=== PATIENT | female | born 1955 ===

== ENCOUNTER 2019-07-11 10:41 | Inpatient (IN) | payer OTHER ==
[2019-07-11] MEDS ORDERED: PNEUMONIA PROTOCOL UTILIZED 1 EACH MISC PO PRN (14:52)
--- NOTE | 2019-07-11 15:26 | P.HPIM ---
History of Present Illness Patient is a pleasant 64-year-old female was transferred from [facility] in [place] at the request of the physician there. Patient was being treated for for pneumonia for last 5 days patient received Rocephin and azithromycin for 4 days followed by levofloxacin as patient is not improving was requested to transfer the patient to be assessed by a winch runner. Patient also feels like she has significant clinical improvement since her hospitalization that. Patient had low-grade fever was Having cough with greenish sputum production. Was diagnosed with pneumonia was treated for with Rocephin and azithromycin followed by levofloxacin as mentioned above. Patient was also treated with systemic steroids and patient had leukocytosis which has worsened probably because of systemic steroids. Patient was using 2 L of oxygen they're here presently in 4 L but but I cut down to 2 L patient is saturating okay but do not believe patient would require 4 L here. Patient is a smoker but not wheezing on exam. Patient is presently complaining of clear sputum production. Patient does have tremor which as per the patient is chronic but can be related to the systemic steroids Review of Systems REVIEW OF SYSTEMS: CONSTITUTIONAL: No fever, no malaise, no fatigue. HEENT: No recent visual problems or hearing problems. Denied any sore throat. CARDIOVASCULAR: No chest pain, orthopnea, PND, no palpitations, no syncope. PULMONARY: No shortness of breath, no cough, no hemoptysis. GASTROINTESTINAL: No diarrhea, no nausea, no vomiting, no abdominal pain. NEUROLOGICAL: No headaches, no weakness, no numbness. HEMATOLOGICAL: Denies any bleeding or petechiae. GENITOURINARY: Denies any burning micturition, frequency, or urgency. MUSCULOSKELETAL/RHEUMATOLOGICAL: Denies any joint pain, swelling, or any muscle pain. ENDOCRINE: Denies any polyuria or polydipsia. The rest of the 14-point review of systems is negative. 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 History of Any Multi-Drug Resistant Organisms: None Reported Additional Past Surgical History / Comment(s): D&C Past Anesthesia/Blood Transfusion Reactions: No Reported Reaction Smoking Status: Current every day smoker - Past Family History Father Family Medical History: Cancer, Coronary Artery Disease (CAD) Additional Family Medical History / Comment(s): Father had throat/lung cancer which he from at the age of 67yrs. Mother Family Medical History: Liver Disease Additional Family Medical History / Comment(s): Mother was an alcoholic. She had cirrhosis. She of meningitis at a young age. Physical Exam Vitals: Vital Signs Temp Pulse Resp BP Pulse Ox 07/11/19 13:20 98.0 F 91 18 178/93 95 Intake and Output 07/11/19 07/11/19 07/11/19 06:59 14:59 22:59 Other: Voiding Method Toilet Weight 58.74 kg PHYSICAL EXAMINATION: GENERAL: The patient is alert and oriented x3, not in any acute distress. Well developed, well nourished. Patient does have tremors HEENT: Pupils are round and equally reacting to light. EOMI. No scleral icterus. No conjunctival pallor. Normocephalic, atraumatic. No pharyngeal erythema. No thyromegaly. CARDIOVASCULAR: S1 and S2 present. No murmurs, rubs, or gallops. PULMONARY: Chest is clear to auscultation, no wheezing or crackles. ABDOMEN: Soft, nontender, nondistended, normoactive bowel sounds. No palpable organomegaly. MUSCULOSKELETAL: No joint swelling or deformity. EXTREMITIES: No cyanosis, clubbing, or pedal edema. NEUROLOGICAL: Gross neurological examination did not reveal any focal deficits. SKIN: No rashes. Thrombosis Risk Factor Assmnt - Choose All That Apply Any of the Below Risk Factors Present?: Yes Each Factor Represents 1 point: Serious lung disease incl. pneumonia (< 1month) Other Risk Factors: Yes Each Risk Factor Represents 2 Points: Age 61-74 years Other congenital or acquired thrombophilia - If yes, enter type in comment: No Thrombosis Risk Factor Assessment Total Risk Factor Score: 3 Thrombosis Risk Factor Assessment Level: Moderate Risk Assessment and Plan Plan: -Pneumonia: Community-acquired patient will be started on Zosyn and levofloxacin as patient didn't develop Rocephin and azithromycin. Pulmonology was Consulted. We'll hold off on systemic steroids patient will be continued on albuterol and ipratropium. Sputum cultures will be obtained -Leukocytosis which is worsening probably secondary to systemic steroids rather than nonresponding pneumonia. We'll repeat a chest x-ray. -Nicotine abuse: Counseling was provided DVT prophylaxis with enoxaparin and GI prophylaxis. Pepcid
[2019-07-11 15:45] LABS: Basophils # (A) 0.4 k/uL (0-0.2); Basophils % (A) 2 %; Eosinophils % (A) 0 %; HCT 39.2 % (34.0-46.0); HGB 11.9 gm/dL (11.4-16.0); Lymphocytes # (A) 0.2 k/uL (1.0-4.8); Lymphocytes % (A) 1 %; MCH 28.2 pg (25.0-35.0); MCHC 30.3 g/dL (31.0-37.0); Mean Platelet Volume 6.4; Monocytes # (A) 0.4 k/uL (0-1.0); Monocytes % (A) 2 %; Neutrophils # (A) 15.8 k/uL (1.3-7.7); Neutrophils % (A) 94 %; Platelet Count 427 k/uL (150-450); RBC 4.21 m/uL (3.80-5.40); RDW 13.4 % (11.5-15.5); WBC 16.8 k/uL (3.8-10.6)
[2019-07-11] MEDS: SODIUM CHLORIDE 0.9% 1,000 ML IV SCH (15:58)
[2019-07-11] MEDS: PIPERACILLIN-TAZOBACTAM 3.375 GM in SODIUM CHLORIDE 0.9% 100 ML IVPB SCH (15:59)
[2019-07-11] MEDS: FAMOTIDINE 20 MG TAB PO SCH (19:45)
[2019-07-12] MEDS: PIPERACILLIN-TAZOBACTAM 3.375 GM in SODIUM CHLORIDE 0.9% 100 ML IVPB SCH ×2 (00:01→08:15)
[2019-07-12] MEDS: SODIUM CHLORIDE 0.9% 1,000 ML IV SCH ×2 (00:07→08:19)
[2019-07-12] MEDS: FAMOTIDINE 20 MG TAB PO SCH ×2 (08:17→08:18)
[2019-07-12] MEDS: ENOXAPARIN 40 MG/0.4 ML SYRINGE SQ SCH (08:17)
[2019-07-12] MEDS ORDERED: predniSONE 20 MG TAB PO SCH (09:00)
[2019-07-12] MEDS ORDERED: FUROSEMIDE 10 MG/ML 4 ML VIAL IV STA (10:27)
[2019-07-12] MEDS: IPRATROPIUM-ALBUTEROL 3 ML NEB INHALATION PRN ×3 (10:35→18:54)
[2019-07-12 11:49] LABS: Basophils # (A) 0.2 k/uL (0-0.2); Basophils % (A) 2 %; Eosinophils # (A) 0.1 k/uL (0-0.7); Eosinophils % (A) 0 %; HCT 44.4 % (34.0-46.0); HGB 14.1 gm/dL (11.4-16.0); Lymphocytes # (A) 1.4 k/uL (1.0-4.8); Lymphocytes % (A) 9 %; MCH 29.5 pg (25.0-35.0); MCHC 31.8 g/dL (31.0-37.0); MCV 92.8 fL (80.0-100.0); Mean Platelet Volume 6.3; Monocytes # (A) 0.7 k/uL (0-1.0); Monocytes % (A) 5 %; Neutrophils # (A) 13.2 k/uL (1.3-7.7); Neutrophils % (A) 84 %; Platelet Count 456 k/uL (150-450); RBC 4.78 m/uL (3.80-5.40); RDW 13.4 % (11.5-15.5); WBC 15.7 k/uL (3.8-10.6)
[2019-07-12 12:33] LABS: African American GFR (CKD) >90 (>60 ml/min/1.73 sqM); Anion Gap 9 mmol/L; Blood Urea Nitrogen 16 mg/dL (7-17); Calcium 9.5 mg/dL (8.4-10.2); Carbon Dioxide 33 mmol/L (22-30); Chloride 98 mmol/L (98-107); Glucose 84 mg/dL (74-99); Non-African American GFR(CKD) >90 (>60 ml/min/1.73 sqM); Sodium 140 mmol/L (137-145)
--- NOTE | 2019-07-12 13:10 | XR ---
EXAMINATION TYPE: XR chest 2V DATE OF EXAM: 07/12/2019 COMPARISON: NONE HISTORY: Shortness of breath TECHNIQUE: Frontal and lateral views of the chest are obtained. FINDINGS: Scattered senescent parenchymal changes noted. Hyperinflation compatible with COPD. Patchy density left lower lobe may reflect developing pneumonia. Correlate clinically. Heart size is stable. Mediastinal structures are stable and grossly unremarkable. No evidence for hilar prominence. Degenerative changes dorsal spine. IMPRESSION: 1. Patchy density left lower lobe may reflect developing pneumonia. Correlate clinically.
[2019-07-12] MEDS ORDERED: LEVOFLOXACIN 750 MG TAB PO SCH (16:00)
--- NOTE | 2019-07-12 16:31 | P.PN ---
Subjective Progress Note Date: 07/12/19 Principal diagnosis: Patient is a pleasant 64-year-old female was transferred from [facility] in [place] at the request of the physician there. Patient was being treated for for pneumonia for last 5 days patient received Rocephin and azithromycin for 4 days followed by levofloxacin as patient is not improving was requested to transfer the patient to be assessed by a electric motor repairer. Patient also feels like she has significant clinical improvement since her hospitalization that. Patient had low-grade fever was Having cough with greenish sputum production. Was diagnosed with pneumonia was treated for with Rocephin and azithromycin followed by levofloxacin as mentioned above. Patient was also treated with systemic steroids and patient had leukocytosis which has worsened probably because of systemic steroids. Patient was using 2 L of oxygen they're here presently in 4 L but but I cut down to 2 L patient is saturating okay but do not believe patient would require 4 L here. Patient is a smoker but not wheezing on exam. Patient is presently complaining of clear sputum production. Patient does have tremor which as per the patient is chronic but can be related to the systemic steroids 07/12/2019 Patient is sitting up in the bed in no acute distress with no acute overnight issues. Daughter is at the bedside. Patient is adamant about going home but is currently requiring oxygen she continues to desat into the 80s with oxygen on via nasal cannula with exertion. Patient and daughter state that she never goes to the doctor unless she is sick and does not have a primary care provider at this time. Pulmonary is consulted and Pending at this time. Will await report. Discussed with the patient at length about staying another night to monitor closely as she is not ready to go home if she is requiring oxygen in order to maintain oxygenation at least 90%. When talking with the patient, patient is very winded and takes multiple breaks in between words. Currently patient denies any chest pain, shortness of breath, or palpitations. Patient has been afebrile. Patient denies any nausea or vomiting and is tolerating diet. Chest x-ray today shows patchy density left lower lobe that may reflect pneumonia. Patient is being started on steroids as well as bronchodilators. Will continue to monitor closely. Objective - Vital Signs Vital signs: Vital Signs Temp 98.1 F 07/12/19 05:00 Pulse 76 07/12/19 10:48 Resp 16 07/12/19 05:00 BP 146/90 07/12/19 05:00 Pulse Ox 88 L 07/12/19 11:58 Intake & Output 07/11/19 07/12/19 07/12/19 18:59 06:59 18:59 Intake Total 540 Balance 540 Weight 58.74 kg Intake: Oral 540 Other: Voiding Method Toilet Toilet # Voids 2 3 - Exam GENERAL: The patient is alert and oriented x3, not in any acute distress. Well developed, well nourished. Patient does have tremors HEENT: Pupils are round and equally reacting to light. EOMI. No scleral icterus. No conjunctival pallor. Normocephalic, atraumatic. No pharyngeal erythema. No thyromegaly. CARDIOVASCULAR: S1 and S2 present. No murmurs, rubs, or gallops. PULMONARY: Diminished breath sounds at the bases with diminished air entry otherwise Chest is clear to auscultation, no wheezing or crackles. ABDOMEN: Soft, nontender, nondistended, normoactive bowel sounds. No palpable organomegaly. MUSCULOSKELETAL: No joint swelling or deformity. EXTREMITIES: No cyanosis, clubbing, or pedal edema. NEUROLOGICAL: Gross neurological examination did not reveal any focal deficits. SKIN: No rashes. - Labs CBC & Chem 7: 07/12/19 10:55 07/12/19 10:55 Labs: Abnormal Lab Results - Last 24 Hours (Table) 07/11/19 07/12/19 07/12/19 Range/Units 15:22 10:55 10:55 WBC 16.8 H 15.7 H (3.8-10.6) k/uL MCHC 30.3 L (31.0-37.0) g/dL Plt Count 456 H (150-450) k/uL Neutrophils # 15.8 H 13.2 H (1.3-7.7) k/uL Lymphocytes # 0.2 L (1.0-4.8) k/uL Basophils # 0.4 H (0-0.2) k/uL Carbon Dioxide 33 H (22-30) mmol/L Assessment and Plan Assessment: -Pneumonia: Community-acquired patient will be started on Zosyn and levofloxacin. Pulmonology was Consulted. Patient is being started on IV Solu- Medrol and patient will be continued on albuterol and ipratropium. Sputum cultures will be obtained -Leukocytosis which is slightly improving probably secondary to systemic steroids rather than nonresponding pneumonia. We'll repeat a chest x-ray. Repeat chest x-ray shows patchy density left lower lobe that may reflect pneumonia. Current WBC is 15.7 which is trending down from 16.8 yesterday. -Nicotine abuse: Counseling was provided -DVT prophylaxis with enoxaparin -GI prophylaxis with Pepcid Recommendations and discussion: Recommend to continue current medications, management, and symptomatic treatment. Pulmonary is consulted and pending at this time. Patient will be started on IV steroids and will continue on bronchodilators at this time. Will continue to monitor closely. Patient is currently requiring oxygen via nasal cannula as a home O2 eval was done and patient continued to desat into the low 80s with exertion. Patient states that she was never told that she had any type of lung disease or COPD but states that she is a chronic smoker and never goes to the doctor unless she is sick. Patient does not currently have a primary c are provider. Resources will be provided upon discharge. Further recommendations to follow. Guarded prognosis.
[2019-07-12] MEDS: methylPREDNISolone SOD SUCCI 125 MG/2 ML VIAL IV SCH ×2 (16:34→23:38)
[2019-07-12] MEDS: FORMOTEROL FUMARATE 20 MCG/2 ML NEBU INHALATION SCH (18:54)
[2019-07-12] MEDS: BUDESONIDE 1 MG/2 ML NEBU INHALATION SCH (18:54)
--- NOTE | 2019-07-12 19:52 | CONS ---
CONSULTATION PULMONARY/CRITICAL CARE CONSULTATION: DATE OF SERVICE: 07/12/2019 This is a 64-year-old female who was admitted to [facility] in [place]. She was admitted initially with a diagnosis of COPD exacerbation and pneumonia. She was there for about 4 or 5 days, treated with typical medications, including Rocephin and Zithromax. She apparently improved there clinically, but apparently this doctor was still uncomfortable with the patient and transferred her down here to be evaluated. She was a direct admission to the hospital. She did have a chest x-ray today which showed a possible infiltrate in the right lower lobe. The patient is a heavy smoker. She has been smoking for more than 40 years. The patient smokes about a pack or more a day. She likely has underlying COPD. Her chest x-ray is consistent with COPD. Anyway, her complaints included shortness of breath, chest tightness, wheezing, cough, chest congestion, shortness of breath and phlegm production. She apparently did not have any chest pain or chest discomfort. There was no history of any fever, according to her. No nausea, vomiting or diarrhea. The patient is currently on oxygen therapy. Off oxygen, she desaturates. Initially she was refusing the oxygen, according to the nurse. PAST MEDICAL HISTORY: Her past medical history is positive for urinary frequency as well as probable COPD. She does not see a family doctor and does not have a family doctor. She denies really having any major medical problems. SURGICAL HISTORY: Surgical history includes a D&C. No other surgeries are noted. SOCIAL HISTORY: Negative for tobacco or illicit drug use. She has been smoking every day for a number of years now, more than 40 at least. FAMILY HISTORY: Family history is positive for father with cancer and CAD. Father apparently had throat cancer and lung cancer. Mother had a history of liver disease. She was an alcoholic and had cirrhosis. REVIEW OF SYSTEMS: CONSTITUTIONAL: Negative. NEUROLOGIC: Negative. HEENT: Negative. CARDIOVASCULAR: Negative. PULMONARY: Shortness of breath, chest tightness, wheezing, cough, chest congestion and phlegm production. GI: Negative. : Negative. RHEUMATOLOGIC: Negative. IMMUNOLOGIC: Negative. ENDOCRINOLOGIC: Negative. DERMATOLOGIC: Negative. PHYSICAL EXAMINATION: VITAL SIGNS: Current vital signs are reviewed. Temperature is 98.1, heart rate 76, respiratory rate 16, blood pressure 146/90, mean 108, two-liter saturation 93%. One- liter saturation 91%. On room air she is 85%. GENERAL APPEARANCE: Appears in no acute distress. No audible wheezing. There is mild conversational dyspnea. No use of accessory muscles. HEENT: HEENT examination is grossly unremarkable. Mucous membranes are moist. No oral lesions. NECK: Supple. Full range of motion. No adenopathy. Neck veins are flat. CARDIOVASCULAR: Cardiovascular examination reveals regular rhythm and rate. S1, S2 normal. No S3, S4. No murmur. Heart rate 76. LUNGS: Lungs reveal severely diminished breath sounds throughout. The patient has prolongation on forced maneuver. She wheezes on forced maneuver. No crackles. Some diffuse rhonchi noted. ABDOMEN: Soft. Bowel sounds are heard. EXTREMITIES: Extremities are intact. No cyanosis, clubbing or edema. SKIN: Without rash. NEUROLOGIC: Neurologic examination is brief but nonfocal. IMAGING: Chest x-ray in my opinion shows changes of COPD. In addition, there may be bibasilar infiltrates. I was more impressed with the right-sided infiltrate. The radiologist was more concerned about the left lower lobe infiltrate. LAB DATA: Reviewed. White count 15.7, hemoglobin 14.1, hematocrit 44.4, platelet count 456,000. Sodium and potassium normal. Chloride is 98, CO2 33. Anion gap 9. BUN and creatinine were 16 and 0.7. The elevated bicarbonate or carbon dioxide concentration might be reflective of the patient's COPD, suggesting more severe disease. Microbiology is negative. Medications were adjusted accordingly. We added Pulmicort 1 mg along with Perforomist twice a day. We went back on IV Solu-Medrol 60 mg q.6. She is currently on Levaquin. In addition, we continue the DuoNeb. The Lasix was discontinued. ASSESSMENT: 1. Chronic obstructive pulmonary disease exacerbation complicated by purulent tracheobronchitis and probable bronchopneumonia in both lower lobes, possibly left greater than right. 2. History of ongoing tobacco use with nicotine addiction. 3. No additional medical history, according to the patient. PLAN: The patient's medications are adjusted accordingly. We will continue to follow. I did mention to her that she may have to be discharged home on oxygen therapy. Additional recommendations and suggestions are forthcoming. Prognosis is guarded. I would be happy to see her in clinic in followup to do pulmonary function testing. MMODL / IJN: [id number] /
[2019-07-13] MEDS: methylPREDNISolone SOD SUCCI 125 MG/2 ML VIAL IV SCH ×2 (05:37→12:14)
[2019-07-13] MEDS: BUDESONIDE 1 MG/2 ML NEBU INHALATION SCH (07:19)
[2019-07-13] MEDS: IPRATROPIUM-ALBUTEROL 3 ML NEB INHALATION PRN ×2 (07:19→10:46)
[2019-07-13] MEDS: FORMOTEROL FUMARATE 20 MCG/2 ML NEBU INHALATION SCH (07:19)
[2019-07-13] MEDS: ENOXAPARIN 40 MG/0.4 ML SYRINGE SQ SCH (09:25)
[2019-07-13] MEDS: FAMOTIDINE 20 MG TAB PO SCH (09:25)
[2019-07-13 09:48] VITALS: BP 156/80; RESP 19; TEMP 97.7
[2019-07-13 10:49] VITALS: PULSE 100
--- NOTE | 2019-07-13 12:59 | P.PN ---
Subjective Progress Note Date: 07/13/19 Principal diagnosis: Chronic obstructive pulmonary disease exacerbation complicated with purulent tracheobronchitis and probable bronchopneumonia On 07/13/2019 patient seen in follow-up on medical surgical floor. She is breathing much easier today, she is on 1 L of oxygen per nasal cannula her pulse ox 91%, afebrile, hemodynamically patient is stable, lung sounds reveal breath sounds, no wheezing, no rhonchi. No febrile episodes, no new labs today, no new chest x-rays. Increase activity as tolerated. Objective - Vital Signs Vital signs: Vital Signs Temp 97.7 F 07/13/19 09:41 Pulse 100 07/13/19 11:03 Resp 19 07/13/19 09:41 BP 156/80 07/13/19 09:41 Pulse Ox 91 L 07/13/19 09:41 Intake & Output 07/12/19 07/13/19 07/13/19 18:59 06:59 18:59 Other: Voiding Method Toilet Toilet Toilet # Voids 2 2 # Bowel Movements 0 - Exam GENERAL EXAM: Alert, pleasant, 64-year-old white female on 1 L of oxygen per nasal cannula with a pulse ox of 91% comfortable in no apparent distress. HEAD: Normocephalic/atraumatic. EYES: Normal reaction of pupils, equal size. Conjunctiva pink, sclera white. NOSE: Clear with pink turbinates. THROAT: No erythema or exudates. NECK: No masses, no JVD, no thyroid enlargement, no adenopathy. CHEST: No chest wall deformity. Symmetrical expansion. LUNGS: Equal air entry with no crackles, wheeze, rhonchi or dullness. CVS: Regular rate and rhythm, normal S1 and S2, no gallops, no murmurs, no rubs ABDOMEN: Soft, nontender. No hepatosplenomegaly, normal bowel sounds, no guarding or rigidity. EXTREMITIES: No clubbing, no edema, no cyanosis, 2+ pulses and upper and lower extremities. MUSCULOSKELETAL: Muscle strength and tone normal. SPINE: No scoliosis or deformity SKIN: No rashes CENTRAL NERVOUS SYSTEM: Alert and oriented -3. No focal deficits, tone is normal in all 4 extremities. PSYCHIATRIC: Alert and oriented -3. Appropriate affect. Intact judgment and insight. - Labs CBC & Chem 7: 07/12/19 10:55 07/12/19 10:55 Assessment and Plan Plan: Assessment: #1. Acute hypoxic respiratory failure related to acute exacerbation of COPD #2. Acute tracheobronchitis and probable bronchopneumonia in both lower lobes possibly left greater than right #3. His trip ongoing tobacco use with nicotine addiction Plan: Clinically patient is stable, increase activity as tolerated, she is requesting to go home today, from pulmonary perspective patient could be considered for discharge home today or tomorrow, She will likely need oxygen after discharge until she fully recovers, we would like to see her in the office in follow-up in 1-2 weeks, she can complete outpatient course of oral antibiotics, prednisone taper, and breathing treatments, okay cessation was encouraged I performed a history & physical examination of the patient and discussed their management with my nurse practitioner, Sammie Moses. I reviewed the nurse practitioner's note and agree with the documented findings and plan of care. Lung sounds are positive for diminished. The findings and the impression was discussed with the patient. I attest to the documentation by the nurse practitioner. Time with Patient: Less than 30
--- NOTE | 2019-07-13 18:40 | P.DS ---
Providers Date of admission: 07/11/19 13:15 Expected date of discharge: 07/13/19 Attending physician: Pamela Jeong Consults: 07/11/19 14:52 Consult Physician Routine Consulting Provider: Noam Brown Consult Reason/Comments: Pneumonia Do you want consulting provider notified?: Yes Primary care physician: Stated None Hospital Course: Final diagnosis -Pneumonia: Community-acquired -Acute COPD exacerbation with possible tracheobronchitis -Leukocytosis -Nicotine abuse: Counseling was provided -DVT prophylaxis -GI prophylaxis Discharge disposition Patient is being discharged in a stable condition with guarded prognosis to home and will follow up with primary care provider upon discharge. Patient does not currently have a pcp and resources were provided. Patient will also follow up with pulmonary in the office in1-2 weeks. Total time taken is 35 minutes. History of present illness Patient is a pleasant 64-year-old female was transferred from [facility] in [place] at the request of the physician there. Patient was being treated for for pneumonia for last 5 days patient received Rocephin and azithromycin for 4 days followed by levofloxacin as patient is not improving was requested to transfer the patient to be assessed by a director of product development. Patient also feels like she has significant clinical improvement since her hospitalization that. Patient had low-grade fever was Having cough with greenish sputum production. Was diagnosed with pneumonia was treated for with Rocephin and azithromycin followed by levofloxacin as mentioned above. Patient was also treated with systemic steroids and patient had leukocytosis which has worsened probably because of systemic steroids. Patient was using 2 L of oxygen they're here presently in 4 L but but I cut down to 2 L patient is saturating okay but do not believe patient would require 4 L here. Patient is a smoker but not wheezing on exam. Patient is presently complaining of clear sputum production. Patient does have tremor which as per the patient is chronic but can be related to the systemic steroids 07/12/2019 Patient is sitting up in the bed in no acute distress with no acute overnight issues. Daughter is at the bedside. Patient is adamant about going home but is currently requiring oxygen she continues to desat into the 80s with oxygen on via nasal cannula with exertion. Patient and daughter state that she never goes to the doctor unless she is sick and does not have a primary care provider at this time. Pulmonary is consulted and Pending at this time. Will await report. Discussed with the patient at length about staying another night to monitor closely as she is not ready to go home if she is requiring oxygen in order to maintain oxygenation at least 90%. When talking with the patient, patient is very winded and takes multiple breaks in between words. Currently patient denies any chest pain, shortness of breath, or palpitations. Patient has been afebrile. Patient denies any nausea or vomiting and is tolerating diet. Chest x-ray today shows patchy density left lower lobe that may reflect pneumonia. Patient is being started on steroids as well as bronchodilators. Will continue to monitor closely. Patient will continue with 02 via NC at 1-2 L until follow up with pulmonary along with antibiotics in the form of Levaquin, prednisone taper, and breathing inhalation treatments. A nebulizer script was provided as well as home 02. Physical Exam GENERAL: The patient is alert and oriented x3, not in any acute distress. Well developed, well nourished. Patient does have tremors. Vital signs are stable. Patient is currently on 1 L 02 via NC and 02 sat is 91%. HEENT: Pupils are round and equally reacting to light. EOMI. No scleral icterus. No conjunctival pallor. Normocephalic, atraumatic. No pharyngeal erythema. No thyromegaly. CARDIOVASCULAR: S1 and S2 present. No murmurs, rubs, or gallops. PULMONARY: Diminished breath sounds at the bases with diminished air entry otherwise Chest is clear to auscultation, no wheezing or crackles. ABDOMEN: Soft, nontender, nondistended, normoactive bowel sounds. No palpable organomegaly. MUSCULOSKELETAL: No joint swelling or deformity. EXTREMITIES: No cyanosis, clubbing, or pedal edema. NEUROLOGICAL: Gross neurological examination did not reveal any focal deficits. SKIN: No rashes. Please refer to medication reconciliation sheet for a list of medications. Patient Condition at Discharge: Stable Plan - Discharge Summary Discharge Rx Participant: No New Discharge Prescriptions: New Ipratropium-Albuterol Nebulize [Duoneb 0.5 mg-3 mg/3 ml Soln] 3 ml INHALATION RT-QID PRN 30 Days #120 ampul.neb PRN Reason: Shortness Of Breath Or Wheezing Levofloxacin [Levaquin] 750 mg PO Q24H 7 Days #7 tab predniSONE 10 mg PO DIRECTED #30 tab Budesonide [Pulmicort] 1 mg INHALATION RT-BID 30 Days #60 nebu Albuterol Inhaler [Ventolin Hfa Inhaler] 1 - 2 puff INHALATION RT-Q6H PRN 30 Days #1 inhaler PRN Reason: Wheezing Continue Ibuprofen [Advil] 200 mg PO Q8HR PRN PRN Reason: Pain Discharge Medication List Ibuprofen [Advil] 200 mg PO Q8HR PRN 07/11/19 [History] Albuterol Inhaler [Ventolin Hfa Inhaler] 1 - 2 puff INHALATION RT-Q6H PRN 30 Days #1 inhaler 07/13/19 [Rx] Budesonide [Pulmicort] 1 mg INHALATION RT-BID 30 Days #60 nebu 07/13/19 [Rx] Ipratropium-Albuterol Nebulize [Duoneb 0.5 mg-3 mg/3 ml Soln] 3 ml INHALATION RT-QID PRN 30 Days #120 ampul.neb 07/13/19 [Rx] Levofloxacin [Levaquin] 750 mg PO Q24H 7 Days #7 tab 07/13/19 [Rx] predniSONE 10 mg PO DIRECTED #30 tab 07/13/19 [Rx] Follow up Appointment(s)/Referral(s): [facility] [NON-STAFF] - Noam Brown DO [Doctor of Osteopathic Medicine] - 1 Week Noam Cobian MD [REFERRING] - 1 Week Ambulatory/Diagnostic Orders: Complete Blood Count w/diff [LAB.AMB] Time Frame: 3 Days, Location: None Selected Patient Instructions/Handouts: How to Stop Smoking (DC), Cigarette Smoking and Your Health (GEN), Using Oxygen at Home (DC), COPD (Chronic Obstructive Pulmonary Disease) (GEN), Pneumonia (DC) Activity/Diet/Wound Care/Special Instructions: Activity limited until follow-up Follow-up with primary care provider upon discharge Repeat labs in 2-3 days Continue current diet Continue to avoid tobacco use Follow-up with pulmonary in 1-2 weeks Complete all of antibiotics Discharge Disposition: HOME SELF-CARE
== END 2019-07-13 13:56 | disposition home or self-care (01) | DRG 193 ==
LOC: 4MS4W 13:15
PROVIDERS: ADMIT Internal Medicine; ATTEND Internal Medicine
DX: J18.0 Bronchopneumonia, unspecified organism (principal); J96.01 Acute respiratory failure with hypoxia; J44.0 Chronic obstructive pulmonary disease with (acute) lower respiratory infection; J44.1 Chronic obstructive pulmonary disease with (acute) exacerbation; J20.9 Acute bronchitis, unspecified; Z71.6 Tobacco abuse counseling; F17.210 Nicotine dependence, cigarettes, uncomplicated; T38.0X5A Adverse effect of glucocorticoids and synthetic analogues, initial encounter; D72.829 Elevated white blood cell count, unspecified; Z80.1 Family history of malignant neoplasm of trachea, bronchus and lung; Z80.8 Family history of malignant neoplasm of other organs or systems; Z81.1 Family history of alcohol abuse and dependence; Z82.49 Family history of ischemic heart disease and other diseases of the circulatory system; R35.0 Frequency of micturition
CPT/HCPCS: 71046; 80048; 85025; 94640; 94760